=== PATIENT | male | born 2000 | race African-American/Black ===

== ENCOUNTER 2024-07-12 19:24 | Emergency (ER) | payer BC, OTHER, SELFPAY ==
[2024-07-12] MEDS ORDERED: IBUPROFEN 200 MG TAB PO ONE (19:31)
[2024-07-12] MEDS ORDERED: IBUPROFEN 400 MG TAB ONE (19:31)
[2024-07-12] MEDS ORDERED: MAGNES/ALUMIN/SIMET 30ML UCUP ONE (19:53)
[2024-07-12] MEDS ORDERED: LIDOCAINE VISCOUS 2% 10ML ORAL SOLN ONE (19:53)
[2024-07-12] MEDS ORDERED: ACETAMINOPHEN 500 MG TAB ONE (19:53)
--- NOTE | 2024-07-12 20:19 | ER ---
Nurse's Notes [facility] Name: Angel Salter Age: 24 yrs Sex: Male : 2000 Arrival Date: 07/12/2024 Time: 19:24 Bed 12 Private MD: Diagnosis: Streptococcal tonsillitis Presentation: 07/12 19:29 Chief complaint: Patient states: Sore throat and fever for three days. Coronavirus bm8 screen: At this time, the client does not indicate any symptoms associated with coronavirus-19. Ebola Screen: Patient negative for fever greater than or equal to 101.5 degrees Fahrenheit, and additional compatible Ebola Virus Disease symptoms Patient denies exposure to infectious person. Patient denies travel to an Ebola-affected area in the 21 days before illness onset. No symptoms or risks identified at this time. Initial Sepsis Screen: Does the patient meet any 2 criteria? No. Patient's initial sepsis screen is negative. Does the patient have a suspected source of infection? No. Patient's initial sepsis screen is negative. Risk Assessment: Do you want to hurt yourself or someone else? Patient reports no desire to harm self or others. Onset of symptoms was July 09, 2024. 19:29 Method Of Arrival: Ambulatory bm8 19:29 Acuity: MILA 3 bm8 19:29 Acuity: MILA 4 bm8 Triage Assessment: 19:30 General: Appears in no apparent distress. comfortable, Behavior is calm, cooperative, bm8 appropriate for age. Pain: Complains of pain in throat Pain currently is 6 out of 10 on a pain scale. EENT: Tympanic membrane Throat is reddened has patchy exudate has enlarged tonsils bilaterally with gag reflex present, Cervical nodes enlarged on left Reports pain in throat Pain is 6 out of 10 on a pain scale. Neuro: No deficits noted. Level of Consciousness is awake, alert, obeys commands, Oriented to person, place, time, situation, Appropriate for age. Cardiovascular: Capillary refill < 3 seconds in bilateral fingers Patient's skin is warm and dry. Respiratory: Airway is patent Respiratory effort is even, unlabored, Respiratory pattern is regular, symmetrical, Breath sounds are clear bilaterally. GI: No signs and/or symptoms were reported involving the gastrointestinal system. : No signs and/or symptoms were reported regarding the genitourinary system. Derm: No signs and/or symptoms reported regarding the dermatologic system. Musculoskeletal: No signs and/or symptoms reported regarding the musculoskeletal system. Historical: - Allergies: 19:30 No Known Allergies; bm8 - Home Meds: 19:30 None [Active]; bm8 - PMHx: 19:30 None; bm8 - PSHx: 19:30 None; bm8 - Immunization history:: Adult Immunizations up to date. - Infectious Disease History:: Denies. - Social history:: Smoking status: Reported history of juuling and/or vaping. Patient/guardian denies using. Screenin:43 [facility] ED Fall Risk Assessment (Adult) History of falling in the last 3 months, al5 including since admission No falls in past 3 months (0 pts) Confusion or Disorientation No (0 pts) Intoxicated or Sedated No (0 pts) Impaired Gait No (0 pts) Mobility Assist Device Used No (0 pt) Altered Elimination No (0 pt) Score/Fall Risk Level 0 - 2 = Low Risk Oriented to surroundings, Maintained a safe environment, Hourly rounding (assess needs \T\ fall precautionary measures) done. Abuse screen: Denies threats or abuse. Denies injuries from another. Nutritional screening: No deficits noted. Tuberculosis screening: No symptoms or risk factors identified. Assessment: 19:35 Reassessment: see triage assessment. 8 19:44 General: Appears in no apparent distress. comfortable, Behavior is calm, cooperative. al5 Pain: Complains of pain in throat. Neuro: Level of Consciousness is awake, alert, obeys commands, Oriented to person, place, time, situation. Cardiovascular: Capillary refill < 3 seconds Patient's skin is warm and dry. Respiratory: Airway is patent Respiratory effort is even, unlabored, Respiratory pattern is regular, symmetrical. GI: No signs and/or symptoms were reported involving the gastrointestinal system. : No signs and/or symptoms were reported regarding the genitourinary system. EENT: Reports sore throat and broken tooth on L upper jaw that happened 2 weeks ago. Derm: Skin is intact, is healthy with good turgor, Skin is pink, warm \T\ dry. normal. Musculoskeletal: No signs and/or symptoms reported regarding the musculoskeletal system. Vital Signs: 19:29 BP 120 / 79; Pulse 93; Resp 18; Temp 99.6; Pulse Ox 100% ; Weight 77.11 kg; Height 5 bm8 ft. 7 in. ; Pain 6/10; 20:25 BP 141 / 85; Pulse 98; Resp 18; Pulse Ox 100% on R/A; al5 19:29 Body Mass Index 26.63 (77.11 kg, 170.18 cm) bm8 19:29 Pain Scale: Adult 8 ED Course: 19:26 Patient arrived in ED. jj6 19:30 Triage completed. bm8 19:30 Arm band placed on right wrist. bm8 19:33 Daniele Cage PA is PHCP. cp 19:33 Guillermo Malone MD is Attending Physician. cp 19:43 Evi Hebert RN is Primary Nurse. al5 19:43 Patient has correct armband on for positive identification. Bed in low position. Call al5 light in reach. Side rails up X 1. Provided Education on: plan of care, wait time. 19:44 No provider procedures requiring assistance completed. Patient did not have IV access al5 during this emergency room visit. Administered Medications: 19:39 Drug: Ibuprofen PO 600 mg PO once Route: PO; bm8 20:21 Follow up: Response: No adverse reaction; Pain is decreased al5 19:58 Drug: GI Cocktail without - (Maalox PO 30 ml, Lidocaine Mucous Membrane 2 % 15 al5 ml) PO once Route: PO; 20:21 Follow up: Response: No adverse reaction; Pain is decreased al5 19:58 Drug: Acetaminophen PO 1000 mg PO once Route: PO; al5 20:21 Follow up: Response: No adverse reaction; Pain is decreased al5 20:25 Drug: Amoxicillin-Clavulanate PO 875 mg PO once Route: PO; al5 20:25 Follow up: Response: No adverse reaction; Medication administered at discharge. al5 Medication: 19:44 VIS not applicable for this client. al5 Outcome: 20:18 Discharge ordered by . cp 20:26 Discharged to home ambulatory, al5 20:26 Condition: good 20:26 Discharge instructions given to patient, Instructed on discharge instructions, follow up and referral plans. medication usage, Demonstrated understanding of instructions, follow-up care, medications, Prescriptions given X 2, 20:26 Patient left the ED. al5 Signatures: Daniele Cage PA PA Jessie Adame jj6 Luke Pimentel, RN RN bm8 Evi Hebert, RN RN al5
--- NOTE | 2024-07-12 20:19 | EDPHYS ---
Physician Documentation [facility] Name: Angel Salter Age: 24 yrs Sex: Male : 2000 Arrival Date: 07/12/2024 Time: 19:24 Bed 12 Private MD: ED Physician Guillermo Malone HPI: 07/12 19:45 This 24 yrs old Black Male presents to ER via Ambulatory with complaints of Sore cp Throat, Fever. 19:45 The patient presents with sore throat. The patient describes throat pain as constant. cp Onset: The symptoms/episode began/occurred 3 day(s) ago. Severity of symptoms: in the emergency department the symptoms are unchanged, despite home interventions. Associated signs and symptoms: Pertinent positives: fever, slight cough, Pertinent negatives diarrhea, dysphagia, flu-like symptoms, shortness of breath, vomiting. Historical: - Allergies: 19:30 No Known Allergies; bm8 - Home Meds: 19:30 None [Active]; bm8 - PMHx: 19:30 None; bm8 - PSHx: 19:30 None; bm8 - Immunization history:: Adult Immunizations up to date. - Infectious Disease History:: Denies. - Social history:: Smoking status: Reported history of juuling and/or vaping. Patient/guardian denies using. ROS: 19:47 Constitutional: Positive for fever, Negative for body aches, poor PO intake, cp 19:47 ENT: Positive for sore throat, Negative for drainage from ear(s), ear pain, sinus congestion, sinus pain, difficulty swallowing, difficulty handling secretions, 19:47 Respiratory: Positive for slight cough, Negative for shortness of breath, wheezing, 19:47 Abdomen/GI: Negative for abdominal pain, vomiting, diarrhea, constipation, Exam: 19:48 Head/Face: Normocephalic, atraumatic. cp 19:48 Constitutional: The patient appears in no acute distress, alert, awake, non-toxic, well developed, well nourished, 19:48 Eyes: Periorbital structures: appear normal, Conjunctiva: normal, no exudate, no injection, Lids and lashes: appear normal, bilaterally, 19:48 ENT: External ear(s): are unremarkable, Nose: is normal, Mouth: Lips: moist, Oral mucosa: moist, abscess, is not appreciated, Posterior pharynx: Airway: no evidence of obstruction, patent, Tonsils: bilaterally enlarged, with erythema, no exudate, swelling, that is mild, erythema, that is moderate, exudate, is not appreciated, 19:48 Neck: Lymph nodes: lymphadenopathy is appreciated, anterior cervical nodes, tender, 19:48 Chest/axilla: Inspection: normal, 19:48 Cardiovascular: Rate: normal, 19:48 Respiratory: the patient does not display signs of respiratory distress, Respirations: normal, no use of accessory muscles, no retractions, labored breathing, is not present, Breath sounds: are clear throughout, no decreased breath sounds, 19:48 Abdomen/GI: Exam negative for discomfort, distension, guarding, Inspection: abdomen appears normal, Vital Signs: 19:29 BP 120 / 79; Pulse 93; Resp 18; Temp 99.6; Pulse Ox 100% ; Weight 77.11 kg; Height 5 bm8 ft. 7 in. ; Pain 6/10; 20:25 BP 141 / 85; Pulse 98; Resp 18; Pulse Ox 100% on R/A; al5 19:29 Body Mass Index 26.63 (77.11 kg, 170.18 cm) bm8 19:29 Pain Scale: Adult bm8 MDM: 19:40 Medical Screening Exam initiated cp 19:45 Differential diagnosis: apthous stomatitis, epiglottitis, randy-dolan virus, group A cp strep tonsillitis, influenza, mononucleosis, peritonsillar abscess chlamydia pharyngitis, neisseria gonorrheoeae pharangitis, Mycoplasma Pharyngitis pharyngitis, retropharyngeal abcess tonsillitis, uvulitis. 20:17 Data reviewed: vital signs, nurses notes, lab test result(s), and as a result, I will cp discharge patient. 20:17 I considered the following discharge prescriptions or medication management in the emergency department Medications were administered in the Emergency Department. See MAR. Counseling: I had a detailed discussion with the patient and/or guardian regarding the historical points, exam findings, and any diagnostic results supporting the discharge/admit diagnosis, lab results, to return to the emergency department if symptoms worsen or persist or if there are any questions or concerns that arise at home. Response to treatment: the patient's symptoms have mildly improved after treatment, and as a result, I will discharge patient. 07/12 19:39 Order name: Group A Streptococcus Rapid; Complete Time: :17 bm8 07/12 20:18 Interpretation: Reviewed. cp Administered Medications: 19:39 Drug: Ibuprofen PO 600 mg PO once Route: PO; bm8 20:21 Follow up: Response: No adverse reaction; Pain is decreased al5 19:58 Drug: GI Cocktail without - (Maalox PO 30 ml, Lidocaine Mucous Membrane 2 % 15 al5 ml) PO once Route: PO; 20:21 Follow up: Response: No adverse reaction; Pain is decreased al5 19:58 Drug: Acetaminophen PO 1000 mg PO once Route: PO; al5 20:21 Follow up: Response: No adverse reaction; Pain is decreased al5 20:25 Drug: Amoxicillin-Clavulanate PO 875 mg PO once Route: PO; al5 20:25 Follow up: Response: No adverse reaction; Medication administered at discharge. al5 Disposition: 07/13 15:25 Chart complete. cp Disposition Summary: 07/12/24 20:18 Discharge Ordered Notes: Location: Home cp Problem: new cp Symptoms: have improved cp Condition: Stable cp Diagnosis - Streptococcal tonsillitis cp Followup: cp - With: Private Physician - When: 2 - 3 days - Reason: Worsening of condition Discharge Instructions: - Discharge Summary Sheet cp - Strep Throat, Adult cp - Tonsillitis cp Forms: - Medication Reconciliation Form cp - Antibiotic Education cp - Prescription Opioid Use cp - Patient Portal Instructions cp - Leadership Thank You Letter cp Prescriptions: - Augmentin 875-125 mg Oral Tablet - take 1 tablet ORAL route every 12 hours for 10 days; 20 tablet; Refills: 0, cp Product Selection Permitted - Ibuprofen 800 mg Oral Tablet - take 1 tablet ORAL route every 8 hours As needed take with food; 30 tablet; cp Refills: 0, Product Selection Permitted Signatures: Dispatcher [employer] Daniele Esqueda PA PA cp Luke Pimentel RN RN bm8 Evi Hebert RN RN al5
[2024-07-12] MEDS ORDERED: AMOX/K CLAV 875 MG TAB ONE (20:23)
[2024-07-12 20:58] VITALS: TEMP 99.6; O2SAT 100
[2024-07-12 20:59] VITALS: BP 141/85
== END 2024-07-12 20:26 | disposition home or self-care (01) ==
LOC: ER 19:24
DX: J03.00 Acute streptococcal tonsillitis, unspecified (principal)
CPT/HCPCS: 36415; 99283

== ENCOUNTER 2025-02-12 11:05 | Emergency (ER) | payer BC ==
[2025-02-12] MEDS ORDERED: KETOROLAC 30 MG/ML INJ ONE (12:10)
[2025-02-12] MEDS ORDERED: ACETAMINOPHEN 500 MG TAB ONE (12:11)
[2025-02-12 12:42] LABS: Influenza A Ag Negative; Influenza B Ag Negative; SARS-CoV-2 Antigen Rapid Res Negative (Negative)
--- NOTE | 2025-02-12 12:49 | ER ---
Nurse's Notes [facility] Name: Angel Salter Age: 25 yrs Sex: Male : 2000 Arrival Date: 02/12/2025 Time: 11:05 Bed 16 Private MD: Diagnosis: Acute tonsillitis, unspecified Presentation: 02/12 11:19 Chief complaint: Patient states: cough, congestion, body aches, chills, sore throat and me1 WEEMS that is 8 starting yesterday. Coronavirus screen: Vaccine status: Patient reports being unvaccinated. Ebola Screen: No symptoms or risks identified at this time. Initial Sepsis Screen: Does the patient meet any 2 criteria? HR > 90 bpm. Does the patient have a suspected source of infection? No. Patient's initial sepsis screen is negative. Risk Assessment: Do you want to hurt yourself or someone else? Patient reports no desire to harm self or others. Onset of symptoms was February 11, 2025. 11:19 Method Of Arrival: Ambulatory [facility] 11:19 Acuity: MILA 4 me1 Triage Assessment: 11:22 General: Appears uncomfortable, ill, well groomed, well developed, well nourished, me1 Behavior is calm, cooperative, appropriate for age. Pain: Complains of pain in head, left aspect of posterior pharynx and right aspect of posterior pharynx Pain does not radiate. Pain currently is 8 out of 10 on a pain scale. Quality of pain is described as aching, Pain began gradually, Is continuous. EENT: Reports nasal congestion nasal discharge pain when swallowing. Neuro: Level of Consciousness is awake, alert, obeys commands, Oriented to person, place, time, situation, Appropriate for age. Cardiovascular: Patient's skin is warm and dry. Respiratory: Reports shortness of breath on exertion cough that is persistent pain with cough Airway is patent Respiratory effort is even, unlabored, Respiratory pattern is regular, symmetrical. GI: No signs and/or symptoms were reported involving the gastrointestinal system. : No signs and/or symptoms were reported regarding the genitourinary system. Derm: Skin is intact, is healthy with good turgor, Skin is normal. Musculoskeletal: Circulation, motion, and sensation intact. Range of motion: limited in all extremities. Historical: - Allergies: 11:20 No Known Drug Allergies; me1 - PMHx: 11:20 sickle cell trait; me1 - PSHx: 11:20 None; me1 - Immunization history:: Adult Immunizations up to date. - Infectious Disease History:: Denies. - Social history:: Smoking status: Reported history of juuling and/or vaping. Screenin:06 [facility] ED Fall Risk Assessment (Adult) History of falling in the last 3 months, jb4 including since admission No falls in past 3 months (0 pts) Confusion or Disorientation No (0 pts) Intoxicated or Sedated No (0 pts) Impaired Gait No (0 pts) Mobility Assist Device Used No (0 pt) Altered Elimination No (0 pt) Score/Fall Risk Level 0 - 2 = Low Risk Oriented to surroundings, Maintained a safe environment. Abuse screen: Denies threats or abuse. Nutritional screening: No deficits noted. Tuberculosis screening: No symptoms or risk factors identified. Assessment: 12:32 Reassessment: Patient appears in no apparent distress at this time. Patient and/or jb4 family updated on plan of care and expected duration. Pain level reassessed. Patient is alert, oriented x 3, equal unlabored respirations, skin warm/dry/pink. Vital Signs: 11:19 BP 122 / 78; Pulse 92; Resp 17; Temp 98.3; Pulse Ox 96% ; Weight 77.11 kg; Height 5 ft. me1 7 in. ; Pain 8/10; 11:19 Body Mass Index 26.63 (77.11 kg, 170.18 cm) me1 11:19 Pain Scale: Adult ia1 ED Course: 11:12 Patient arrived in ED. cj3 11:12 Wilian Montero FNP-C is PHCP. dr5 11:12 Daniele Freeman MD is Attending Physician. dr5 11:20 Triage completed. me1 11:20 Arm band placed on Patient placed in waiting room. me1 12:32 Dilan Sanford, JODEE is Primary Nurse. jb4 12:45 Chest Single View XRAY In Process Unspecified. EDMS 13:06 Patient has correct armband on for positive identification. Bed in low position. Call jb4 light in reach. Side rails up X 1. Provided Education on: discharge instructions.. 13:06 No provider procedures requiring assistance completed. Patient did not have IV access jb4 during this emergency room visit. Administered Medications: 12:19 Drug: Acetaminophen PO 1000 mg PO once Route: PO; jb4 12:20 Drug: Ketorolac IM 30 mg IM once Route: IM; Site: left deltoid; jb4 Medication: 13:06 VIS not applicable for this client. jb4 Outcome: 12:49 Discharge ordered by . jennifer 13:06 Discharged to home ambulatory, jb4 13:06 Condition: stable 13:06 Discharge instructions given to patient, Instructed on discharge instructions, follow up and referral plans. no drinking with medication, medication usage, Demonstrated understanding of instructions, follow-up care, medications, Prescriptions given X 2, 13:08 Patient left the ED. jb4 Signatures: Dispatcher [employer] EDMS Dilan Sanford RN RN jb4 Anne Brush RN RN me1 Wilian Montero, ASSISTANT OPERATOR-C ASSISTANT OPERATOR-Cdr5 Amelia Meeks cj3 Corrections: (The following items were deleted from the chart) 13:08 13:06 Discharge instructions given to patient, Instructed on discharge instructions, jb4 follow up and referral plans. no drinking with medication, no driving heavy equipment, medication usage, Demonstrated understanding of instructions, follow-up care, medications, Prescriptions given X 3, jb4
--- NOTE | 2025-02-12 12:49 | EDPHYS ---
Physician Documentation [facility] Name: Angel Salter Age: 25 yrs Sex: Male : 2000 Arrival Date: 02/12/2025 Time: 11:05 Bed 16 Private MD: ED Physician Daniele Freeman HPI: 02/12 12:13 This 25 yrs old Black Male presents to ER via Ambulatory with complaints of Flu dr5 Symptoms. 12:13 Onset: The symptoms/episode began/occurred 2 day(s) ago. 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 Patient reports that someone at work is also sick. Patient denies chest pain, shortness of breath, abdominal pain, nausea, vomiting, diarrhea. Historical: - Allergies: 11:20 No Known Drug Allergies; me1 - PMHx: 11:20 sickle cell trait; me1 - PSHx: 11:20 None; me1 - Immunization history:: Adult Immunizations up to date. - Infectious Disease History:: Denies. - Social history:: Smoking status: Reported history of juuling and/or vaping. ROS: 12:13 Constitutional: as per hpi dr5 Exam: 12:13 Constitutional: This is a well developed, well nourished patient who is awake, alert, dr5 and in no acute distress. Head/Face: Normocephalic, atraumatic. Eyes: Pupils equal round and reactive to light, extra-ocular motions intact. Lids and lashes normal. Conjunctiva and sclera are non-icteric and not injected. Cornea within normal limits. Periorbital areas with no swelling, redness, or edema. 12:13 Neck: Trachea midline, no thyromegaly or masses palpated, and no cervical lymphadenopathy. Supple, full range of motion without nuchal rigidity, or vertebral point tenderness. No Meningismus. Chest/axilla: Normal chest wall appearance and motion. Nontender with no deformity. No lesions are appreciated. Cardiovascular: Regular rate and rhythm with a normal S1 and S2. Normal PMI, no JVD. No pulse deficits. Respiratory: Lungs have equal breath sounds bilaterally, clear to auscultation. No rales, rhonchi or wheezes noted. No increased work of breathing, no retractions or nasal flaring. Back: No spinal tenderness. No costovertebral tenderness. Full range of motion. Skin: Warm, dry with normal turgor. Normal color with no rashes, no lesions, and no evidence of cellulitis. MS/ Extremity: Pulses equal, no cyanosis. Neurovascular intact. Full, normal range of motion. Neuro: Awake and alert, GCS 15, oriented to person, place, time, and situation. Cranial nerves II-XII grossly intact. Motor strength 5/5 in all extremities. Sensory grossly intact. Cerebellar exam normal. Normal gait. 12:13 ENT: External ear(s): are unremarkable, Ear canal(s): are normal, TM's: are normal, no acute changes, Nose: is normal, Mouth: is normal, no acute changes, Posterior pharynx: Airway: normal, no evidence of obstruction, Tonsils: bilaterally enlarged, with erythema, Uvula: normal, midline, Vital Signs: 11:19 BP 122 / 78; Pulse 92; Resp 17; Temp 98.3; Pulse Ox 96% ; Weight 77.11 kg; Height 5 ft. me1 7 in. ; Pain 8/10; 11:19 Body Mass Index 26.63 (77.11 kg, 170.18 cm) me1 11:19 Pain Scale: Adult me1 MDM: 11:13 Medical Screening Exam initiated dr5 12:51 Differential diagnosis: viral Infection, bacterial infection, Strep, COVID, dr5 tonsillitis. Data reviewed: vital signs, nurses notes, lab test result(s), Flu: negative COVID-negative, strep negative, radiologic studies, plain films. 12:51 Consideration of Admission/Observation Escalation of care including dr5 admission/observation considered. Escalation considered patient found to have fever and hypoxia. I considered the following discharge prescriptions or medication management in the emergency department I discussed and recommended Over The Counter medications, Medications were administered in the Emergency Department. See MAR. Independent interpretation of the following test(s) in the Emergency Department X-Ray: My interpretation is Independent interpretation of x-ray does not reveal infiltrates concerning for pneumonia.. Care significantly affected by the following Social Determinants of Health: Poor access to healthcare and/or lack of insurance, Poor access to transportation, Problems related to employment. Counseling: I had a detailed discussion with the patient and/or guardian regarding the historical points, exam findings, and any diagnostic results supporting the discharge/admit diagnosis, the presence of at least one elevated blood pressure reading (>120/80) during this emergency department visit, lab results, radiology results, the need for outpatient follow up, for definitive care, a family practitioner, to return to the emergency department if symptoms worsen or persist or if there are any questions or concerns that arise at home. Medication response: Response to treatment: the patient's symptoms have markedly improved after treatment. Special discussion: I discussed with the patient/guardian in detail that at this point there is no indication for admission to the hospital. It is understood, however, that if the symptoms persist or worsen the patient needs to return immediately for re-evaluation. Based on the history and exam findings, there is no indication for further emergent testing or inpatient evaluation. I discussed with the patient/guardian the need to see the primary care provider for further evaluation of the symptoms. ED course: Will cover patient for tonsillitis with amoxicillin. Recommended increase hydration, alternate Tylenol Motrin as needed for pain fever. All questions were answered. Strict ER precautions given. 02/12 11:13 Order name: COVID-19 Ag + Flu A+B Ag; Complete Time: 12:48 dr5 02/12 11:25 Order name: Group A Streptococcus Rapid; Complete Time: 12:34 dr5 02/12 12:37 Order name: Throat Culture EDMD 02/12 11:25 Order name: Chest Single View XRAY; Complete Time: 13:06 dr5 Administered Medications: 12:19 Drug: Acetaminophen PO 1000 mg PO once Route: PO; jb4 12:20 Drug: Ketorolac IM 30 mg IM once Route: IM; Site: left deltoid; jb4 Disposition Summary: 02/12/25 12:49 Discharge Ordered Notes: Location: Home dr5 Condition: Stable dr5 Diagnosis - Acute tonsillitis, unspecified dr5 Followup: dr5 - With: Emergency Department - When: As needed - Reason: Worsening of condition Followup: dr5 - With: Private Physician - When: 1 - 2 days - Reason: Recheck today's complaints, Continuance of care, Re-evaluation by your physician Discharge Instructions: - Discharge Summary Sheet dr5 - Tonsillitis dr5 Forms: - Work release form dr5 - Medication Reconciliation Form dr5 - Antibiotic Education dr5 - Patient Portal Instructions dr5 - Leadership Thank You Letter dr5 Prescriptions: - Amoxicillin 500 mg Oral Capsule - take 1 capsule ORAL route every 8 hours for 10 days; 30 tablet; Refills: 0, dr5 Product Selection Permitted - Medrol (Richard) 4 mg Oral Tablets, Dose Pack - take 1 tablet ORAL route as directed - follow package instructions; 1 packet; dr5 Refills: 0, Product Selection Permitted Signatures: Dispatcher [employer] EDMS Dilan Sanford, RN RN jb4 Anne Brush RN RN me1 Wilian Montero, DIESEL SERVICE APPRENTICE-C DIESEL SERVICE APPRENTICE-Cdr5 Corrections: (The following items were deleted from the chart) 11:14 11:14 COVID-19 Ag + Flu A+B Ag+I.LAB.BRZ ordered. EDMS EDMS 11:25 11:25 Group A Streptococcus Rapid Sc+I.LAB.BRZ ordered. EDMS EDMS 11:25 11:25 Chest Single View+RAD.RAD.BRZ ordered. EDMS EDMS 12:53 12:51 Data reviewed: vital signs, nurses notes, lab test result(s), Flu: negative dr5 COVID-negative, strep negative, dr5
--- NOTE | 2025-02-12 13:05 | RAD REPORT ---
Procedure: Chest Single View HISTORY: Cough COMPARISON: 2016 FINDINGS: The lungs appear clear of acute infiltrate. No significant pleural effusion noted. The heart is normal size. IMPRESSION: No acute abnormality is displayed.
[2025-02-12 17:20] VITALS: BP 122/78; TEMP 98.3; O2SAT 96
== END 2025-02-12 13:08 | disposition home or self-care (01) ==
LOC: ER 11:05
DX: J03.90 Acute tonsillitis, unspecified (principal); Z11.52 Encounter for screening for COVID-19
CPT/HCPCS: 87070; 36415; 71045; 96372; 99284; 87428; J1885